=== PATIENT | female | born 1990 | race Two or more races ===

== ENCOUNTER 2024-03-10 11:46 | Emergency (ER) | payer MEDICAID, SELFPAY ==
[2024-03-10 12:05] VITALS: BP 139/82; PULSE 79; RESP 19; TEMP 36.8; O2SAT 99; BMI 36.7
--- NOTE | 2024-03-10 12:09 | XR_ITS ---
Examination: Pelvic ultrasound, transabdominal, complete Technique: Transabdominal ultrasound of the pelvis performed using grayscale imaging Date and time of exam: March 10, 2024 1413 hours INDICATIONS: Lower abdominal pain beginning 2 months ago FINDINGS: Uterus 9.3 x 3.5 x 4.4 cm No uterine mass or intrauterine gestation Endometrial stripe 0.3 cm Right ovary 3.2 x 1.8 x 2.9 cm arterial flow small follicles, the largest 14 mm Left ovary 4.4 x 3.2 x 3.8 cm arterial flow 3.2 x 3.0 x 3.2 cm cyst IMPRESSION: Left ovarian simple cyst 3.2 x 3.0 x 3.26
--- NOTE | 2024-03-10 12:09 | PD.EDRME ---
Rapid Medical Screening Exam RME Arrival date/time: 03/10/24 11:46 33-year-old female presents to the emergency department complaints of left-sided pelvic pain ongoing for 2 months Chief Complaint: Abdominal Pain Time Seen by Provider: 03/10/24 12:01 Vital signs: Vital Signs Temperature 98.2 F 03/10/24 12:05 Pulse Rate 79 03/10/24 12:05 Respiratory Rate 19 03/10/24 12:05 Blood Pressure 139/82 H 03/10/24 12:05 Pulse Oximetry (%) 99 03/10/24 12:05 Oxygen Delivery Method Room Air 03/10/24 12:05
[2024-03-10 12:19] LABS: Collection Type, Urine Clean Catch
[2024-03-10 12:28] LABS: HCG Qualitative,Urine Negative
[2024-03-10 12:31] LABS: Basophils # (Auto) 0.1 Thou/mm3 (0.0-0.2); Basophils % (Auto) 1 % (0-2.5); Eosinophils # (Auto) 0.2 Thou/mm3 (0.0-0.5); Eosinophils % (Auto) 3 % (0-10); Hematocrit 42.1 % (36.0-46.0); Hemoglobin 14.1 g/dL (12.0-16.0); Immature Granulocytes % (Auto) 0 % (0-0); Immature Granulocytes Auto 0.01 Thou/mm3 (0.00-0.00); Lymphocytes # (Auto) 2.6 Thou/mm3 (1.0-4.8); Lymphocytes % (Auto) 31 % (10-50); Mean Corpuscular HGB Conc 33.5 g/dl (31.0-37.0); Mean Corpuscular Hemoglobin 32.1 pg (25.0-35.0); Mean Corpuscular Volume 96 fL (80-100); Monocytes # (Auto) 0.5 Thou/mm3 (0.0-0.8); Monocytes % (Auto) 6 % (0-12); Neutrophils # (Auto) 4.9 Thou/mm3 (1.8-7.7); Neutrophils % (Auto) 60 % (37-80); Nucleated Red Blood Cell % 0 /100 WBC (0); Platelet Count 206 Thou/mm3 (140-440); Red Blood Count 4.39 Miln/mm3 (4.00-5.20); White Blood Count 8.2 Thou/mm3 (3.6-11.0)
[2024-03-10 12:51] LABS: Alanine Aminotransferase 41 U/L (10-49); Albumin, Serum 4.4 gm/dL (3.5-5.0); Albumin/Globulin Ratio 1.2 (1.2-2.2); Alkaline Phosphatase 78 U/L (46-116); Anion Gap 4 (7-16); Aspartate Amino Transferase 39 U/L (0-34); BUN/Creatinine Ratio 11 Ratio (12-20); Bilirubin,Total 0.8 mg/dL (0.3-1.2); Blood Urea Nitrogen 9 mg/dL (9-23); Calcium 9.3 mg/dL (8.3-10.6); Calcium (Corrected) 9.3 mg/dL (8.5-10.1); Carbon Dioxide 27.8 mMol/L (20.0-31.0); Chloride 103 mMol/L (98-107); Creatinine (Component) 0.8 mg/dL (0.6-1.3); Estimated Creatinine Clearance 104.1 mL/min (>60); Globulin 3.6 gm/dL (2.3-3.5); Glucose 118 mg/dL (74-106); Lipase 36 U/L (12-53); Osmolality,Calculated 269 (275-295); Potassium 3.6 mMol/L (3.4-5.1); Sodium 135 mMol/L (136-145); eGFR > 60 See Note
[2024-03-10 13:01] LABS: Bilirubin,Urine Negative (Negative); Blood,Urine Negative (Negative); Clarity,Urine Clear (Clear/Hazy); Color,Urine Lt-Yellow (Lt Yel-Yel); Culture Indicated,Urine Not Indicated; Glucose, Urine Negative (Negative); Ketones,Urine Negative (Negative); Leukocyte Esterase,Urine Negative (Negative); Nitrite,Urine Negative (Negative); PH,Urine 6.5 (5.0-7.0); Protein,Urine Negative (Neg - Trace); RBC,Urine < 1 /hpf (0-3); Specific Gravity,Urine 1.013 (1.001-1.035); Squamous Epithelial Cell,Urine 1 /hpf (0-5); Urobilinogen,Urine Negative mg/dL (0.0-1.0); WBC,Urine < 1 /hpf (0-5)
[2024-03-10 16:04] VITALS: BP 149/80; PULSE 57; RESP 16; TEMP 36.9; O2SAT 100
--- NOTE | 2024-03-10 17:07 | PD.EDABDPN ---
ED Abdominal Pain RME/HPI General Chief Complaint: Abdominal Pain Stated complaint: LWR ABD PAIN X 2 MONTHS Time seen by provider: 03/10/24 12:01 Arrival date/time: 03/10/24 11:46 RME / HPI RME / HPI narrative: 03/10/24 11:46 83-year-old female patient with no past medical history presented to the ED due to left lower abdominal pain for 2 months before presentation. Patient reported that the pain started 2 months ago and acute worsening over time to now with become severe and she cannot tolerate the pain. She reported that the pain is worse when she walks and become less when she sit down or lie flat. She denied any radiation and she mentions that the pain is dull aching in character. She denied any nausea or vomiting, she denied any urinary tract symptoms or vaginal discharge. On questioning patient reports that her menses are regular she has never had such pain in the past. She is sexually active with a single partner. Related Data Home Medications ?Medication ?Instructions ?Recorded ?Confirmed Vits W-Ca,Fe,Fa(<1MG) 1 tab PO DAILY ##0 01/19/09 () Allergies Allergy/AdvReac Type Severity Reaction Status Date / Time NKA* Allergy Uncoded 03/10/24 11:48 ED Exam Narrative Physical exam: GEN: AOx3, able to speak full sentences HEENT: NC/AC, PERRLA, oral mucosa moist, neck supple CVS: RRR, S1-S2 present, no murmurs appreciated RESP: CTAB GI: soft,non distended, tenderness of the left iliac fossa, no rebound tenderness, NBS MSK: able to move all 4 limbs, no lower extremity edema SKIN: warm and dry GEODETIC ENGINEER: CN II-XII and Sensation grossly intact. Course Quality Measures none Orders Category Date Time Status CT Screening NOW Care 03/10/24 17:[address] abdomen pelvis w con Stat Exams 03/10/24 17:22 Completed US pelvic complete Stat Exams 03/10/24 12:09 Completed CBC Stat Lab 03/10/24 12:17 Completed Comprehensive Metabolic Panel Stat Lab 03/10/24 12:17 Completed HCG Qualitative,Urine Stat Lab 03/10/24 12:13 Completed Lipase Stat Lab 03/10/24 12:17 Completed UA, C/S IF [Urinalysis, C/S if Indicated] Stat Lab 03/10/24 12:13 Completed HYDROcodone*/APAP 7.5/325 [[place] 7.5/325] Med 03/10/24 17:05 Discontinued 1 tab PO X1 ONE Sodium Chloride 0.9% 1000 ml [Ns] 1,000 ml Med 03/10/24 17:27 Discontinued IV 999 mls/hr Vital Signs Vital signs: Vital Signs Temperature 98.2 F 03/10/24 12:05 Pulse Rate 79 03/10/24 12:05 Respiratory Rate 19 03/10/24 12:05 Blood Pressure 139/82 H 03/10/24 12:05 Pulse Oximetry (%) 99 03/10/24 12:05 Oxygen Delivery Method Room Air 03/10/24 12:05 Abdominal Pain MDM MDM Narrative MDM Narrative:: On evaluation patient was found to have high blood pressure of 146/91 most likely secondary to the pain. All her labs were within normal limits, pelvic ultrasound showed left-sided ovarian cyst. However because the patient has severe pain that increased to 10 out of 10 when she walks and worsening of the symptoms over time we ordered for the patient abdominal pelvic CT scan with contrast. Pending results. Patient was signed out to Dr. fish at 18:05 Patient data External records reviewed:: [facility] previous records Clinical information provided by:: patient Social determinants that could affect healthcare access:: none Patient has the following chronic illnesses:: none How is presenting disease/condition affected by chronic disease/condition?: no chronic disease Evaluation data The following diagnostics were reviewed and interpreted by me:: lab results, radiology exam(s) and EKG tracing(s) Lab and/or radiology exams considered but not ordered:: none Interpretation Summary: Pelvic pain for evaluatiob Medications / Prescriptions Medications or Prescriptions considered but not ordered:: None Medication administrations:: Medication Administration History Discontinued Medications Hydrocodone Bitart/Acetaminophen (Hydrocodone/Apap 7.5/325 Tablet) 1 tab PO X1 ONE Stop: 03/10/24 17:06 Last Admin: 03/10/24 17:46 Dose: 1 tab Documented By: AURORA Sodium Chloride (Ns) 1,000 mls @ 999 mls/hr IV .Q1H1M ONE Stop: 03/10/24 18:27 Last Admin: 03/10/24 18:10 Dose: 999 mls/hr Documented By: AURORA as above Consultations Consultation(s) initiated? (list below): No Diagnosis Differential diagnosis abdominal pain: abdominal pain Most likely diagnosis given after review of the tests above:: Pelvic pain Admission Indicated Admission indicated?: not indicated Admission Request Was there a request for admission?: No Disposition Plan Disposition Plan: other (specify) (Signed out to Dr Fish) Discharge Plan Prescriptions/Referrals Prescriptions/Med Rec: No Action Vits W-Ca,Fe,Fa(<1MG) () 1 TAB tablet 1 tab PO DAILY Qty: 0 Referrals: No Primary/Family,Physician [Primary Care Provider] - In 1 week Problem List Clinical Impression: Abdominal pain, Pelvic pain Patient/Caregiver Discharge Instructions Print Language: Sen[place]e Attestation Attestation I, Mingo Espinoza MD, have reviewed the history, exam, and assessment of the patient. I have evaluated the patient independently and agree with the plan of care documented by [ ]. All diagnostic studies were reviewed and discussed. I confirm the diagnosis as documented by the Resident. I was present during the Medical Decision Making for this patient. The patient's plan of care was created between myself and the Resident and consistent with our discussion of the patient's case.
--- NOTE | 2024-03-10 17:22 | XR_ITS ---
Examination: CT abdomen with intravenous contrast CT pelvis with intravenous contrast 2-D coronal reconstructions 2-D sagittal reconstructions Date and time of exam:March 10, 2024 1827 hrs. Comparison December 31, 2011 Indications: Left-sided abdominal pain beginning 2 months ago. CTDI: vol (mGy) 13.2 DLP: (mGycm) 770 Technique: Multiple axial sections of the abdomen and pelvis have been obtained. 64 slice high-resolution scanner used. 3 mm axial sections have been obtained, post intravenous injection 60 cc [id number] 2-D sagittal, coronal reconstructions obtained. Low dose protocols were performed. One or more of the following dose reduction techniques were used; automated exposure control, adjustment of the mA and/or KV according to patient size, use of iterative reconstruction technique. Findings: No focal liver or splenic lesions No gallstones Splenule No pancreatic or adrenal mass No renal or ureteral calculi, no hydronephrosis Aorta normal size 10 mm fat-containing umbilical hernia No pericecal inflammatory change Anteverted uterus 4 cm left adnexal cyst Urinary bladder intact No hernia defect Advanced degenerative disc disease L4-L5, L5-S1, L5-S1 4 mm central lumbar disc bulge displacing both the right and left S1 nerve roots Impression: 4 cm left adnexal cyst, please see the pelvic sonogram report today Advanced degenerative disc disease L4-L5, L5-S1 L5-S1 4 mm central lumbar disc bulge displacing both the right and left S1 nerve roots, consider MRI lumbar spine without contrast follow-up
[2024-03-10] MEDS: HYDROcodone/APAP 7.5/325 TABLET 1 TAB PO (17:46)
[2024-03-10 17:49] VITALS: BP 125/85; PULSE 65; RESP 16; TEMP 37.1; O2SAT 99
--- NOTE | 2024-03-10 18:07 | PD.EDRME ---
Rapid Medical Screening Exam RME Arrival date/time: 03/10/24 11:46 03/10/24 11:46 83-year-old female patient with no past medical history presented to the ED due to left lower abdominal pain for 2 months before presentation. Patient reported that the pain started 2 months ago and acute worsening over time to now with become severe and she cannot tolerate the pain. She reported that the pain is worse when she walks and become less when she sit down or lie flat. She denied any radiation and she mentions that the pain is dull aching in character. She denied any nausea or vomiting, she denied any urinary tract symptoms or vaginal discharge. On questioning patient reports that her menses are regular she has never had such pain in the past. She is sexually active with a single partner. Chief Complaint: Abdominal Pain Time Seen by Provider: 03/10/24 12:01 Vital signs: Vital Signs Temperature 98.2 F 03/10/24 12:05 Pulse Rate 79 03/10/24 12:05 Respiratory Rate 19 03/10/24 12:05 Blood Pressure 139/82 H 03/10/24 12:05 Pulse Oximetry (%) 99 03/10/24 12:05 Oxygen Delivery Method Room Air 03/10/24 12:05 RME Narrative: 03/10/24 11:46 83-year-old female patient with no past medical history presented to the ED due to left lower abdominal pain for 2 months before presentation. Patient reported that the pain started 2 months ago and acute worsening over time to now with become severe and she cannot tolerate the pain. She reported that the pain is worse when she walks and become less when she sit down or lie flat. She denied any radiation and she mentions that the pain is dull aching in character. She denied any nausea or vomiting, she denied any urinary tract symptoms or vaginal discharge. On questioning patient reports that her menses are regular she has never had such pain in the past. She is sexually active with a single partner.
[2024-03-10] MEDS: SODIUM CHLORIDE 0.9% 1000 ML 1,000 ML 999 ML IV (18:10)
[2024-03-10 19:35] VITALS: BP 119/68; PULSE 61; RESP 18; O2SAT 99
--- NOTE | 2024-03-10 20:31 | EDNOTE_ITS ---
Emergency Room Addendum Addendum Narrative: 1800: Care assumed from resident Pepe Leonard MD, the previous shift emergency physician. Past medical, surgical, social and family history reviewed. Vitals and home medications reviewed. I will assume the care of the patient at this time, pending abdominal pelvic CT scan with contrast. Please refer to the emergency department record for history and examination from initial visit. Physical exam by me shows significant for left lower quadrant tenderness. She does have some mild tenderness with flexion of the hip. No lumbar tenderness no back tenderness. Patient reports increasing pain over the last two months where she?s had pain every day in the left lower pelvic area. She comes to the emergency department as now for the last two days is becoming more difficult to walk or even sit for prolong periods of times due to the pain. She has no change in menstrual or urinary habits. Her last menstrual period was on February lasting eight days with normal bleeding. Her pain did not change during her menstrual. We will send her home with some anti-inflammatories and follow up with her primary care physician, which is the [facility]. RADIOLOGY DATA I personally reviewed the radiology data and agree with the radiologist's interpretation. Examination: CT abdomen with intravenous contrast CT pelvis with intravenous contrast 2-D coronal reconstructions 2-D sagittal reconstructions Date and time of exam:March 10, 2024 1827 hrs. Comparison December 31, 2011 Indications: Left-sided abdominal pain beginning 2 months ago. Findings: No focal liver or splenic lesions No gallstones Splenule No pancreatic or adrenal mass No renal or ureteral calculi, no hydronephrosis Aorta normal size 10 mm fat-containing umbilical hernia No pericecal inflammatory change Anteverted uterus 4 cm left adnexal cyst Urinary bladder intact No hernia defect Advanced degenerative disc disease L4-L5, L5-S1, L5-S1 4 mm central lumbar disc bulge displacing both the right and left S1 nerve roots Impression: 4 cm left adnexal cyst, please see the pelvic sonogram report today Advanced degenerative disc disease L4-L5, L5-S1 L5-S1 4 mm central lumbar disc bulge displacing both the right and left S1 nerve roots, consider MRI lumbar spine without contrast follow-up Dictated By: Marvin Blanc MD, MD Attestation Attestation Scribe Attestation: I, Conjellyfer Richie, am scribing for and in the presence of Dr. Nielsen. Provider Notation: Although this document has been carefully reviewed, there may still be some phonetic and other typographical errors. These errors are purely grammatical due to imperfections in the software program and should not be construed in any way to compromise the substance of the patient's medical care during this visit.
== END 2024-03-10 21:22 | disposition home or self-care (01) ==
PROVIDERS: Nurse Practitioner Primary Care; Emergency Provider Emergency Medicine
DX: N83.292 Other ovarian cyst, left side (principal); M51.379 Other intervertebral disc degeneration, lumbosacral region without mention of lumbar back pain or lower extremity pain; M51.27 Other intervertebral disc displacement, lumbosacral region; M51.369 Other intervertebral disc degeneration, lumbar region without mention of lumbar back pain or lower extremity pain
CPT/HCPCS: 36415; 74177; 76856; 80053; 81001; 81025; 83690; 85025; 96360; 96361; 99285; A4649; J7030; Q9967; A9270